=== PATIENT | female | born 1940 ===

== ENCOUNTER 2020-09-16 05:42 | Inpatient (IN) | payer OTHER ==
[~2020-09-16] VITALS: Ht 170.2 cm; Wt 133.8 kg
[~2020-09-16 05:42] MED LIST: AMLODI PO; AMMONIUM LACTATE; ARICEPT10 MG PO; CALCIUM 500 +1 EAC2 PO; CHILDREN'S ASPI81 MG PO; COZAAR100 MG PO; CYMBALTA60 MG PO; DAILY MULTIPLE1 EAC2 PO; FLONASE; HORIZANT600 MG PO; IBU600 MG PO; LEVOTHYROXINE25 MC2 PO; MAGNESIUM500 MG PO; MELATONIN PO; MEMANTINE HCL10 MG PO; MIRTAZAPINE15 M1 PO; OMEGA PO; PEPCID AC20 MG PO; PRILOSE PO; SEROQUEL25 MG PO; SEROQUEL50 MG PO; SINGULAIR 10MG10 MG PO; TRENTAL PO; TYLENOL PO; ULTRAM50 MG PO; VITAMIN C100 MG PO; VITAMIN E400 UNI5 PO; ZOCOR40 MG PO; [UNRECOGNIZED DRUG - OTHER]
[2020-09-17] MEDS ORDERED: OMEPRAZOLE20 MG (08:06)
[2020-09-17] MEDS ORDERED: AMMONIUM LACTA400 GM (08:06)
[2020-09-17] MEDS ORDERED: PRAMIPEXOLE D0.25 MG (08:07)
[2020-09-17] MEDS ORDERED: PENTOXIFYLLINE400 MG (08:07)
[2020-09-17] MEDS ORDERED: AMLODIPINE BESYL5 MG (08:08)
[2020-09-17] MEDS ORDERED: MELATONIN1 MG (08:10)
[2020-09-17] MEDS ORDERED: PRILOSEC OTC20 MG (08:10)
[2020-09-17] MEDS ORDERED: TYLENOL325 MG (08:10)
[2020-09-17] MEDS ORDERED: FLONASE16 GM (08:11)
[2020-09-17] MEDS ORDERED: OMEGA 3 1,0001 EACH (08:11)
[2020-09-18] MEDS ORDERED: INTEGRA PLUS C1 EACH PO (06:46)
[2020-09-18] MEDS ORDERED: BACTRIM DS TAB1 EACH PO (06:46)
[2020-09-18] MEDS ORDERED: XARELTO10 MG PO (06:46)
[2020-09-18] MEDS ORDERED: OXYC1TAB9 PO (06:46)
== END 2020-09-18 14:06 | disposition home or self-care (01) | DRG 470 ==
LOC: CIR.AMB 05:42 → SURG 08:22 → O/R 08:22 → SURH 11:09 → CIR.AMB 11:30 → SURH 11:30 → EDSTATUS 11:30 → SURG 20:32
PROVIDERS: ADMIT Orthopaedic Surgery Sports Medicine; ATTEND Orthopaedic Surgery Sports Medicine
PROC: 0SRC0J9 Replacement of Right Knee Joint with Synthetic Substitute, Cemented, Open Approach (ICD-10-PCS; principal; 2020-09-16 07:00)
DX: M17.11 Unilateral primary osteoarthritis, right knee (principal); G30.8 Other Alzheimer's disease; F02.80 Dementia in other diseases classified elsewhere, unspecified severity, without behavioral disturbance, psychotic disturbance, mood disturbance, and anxiety; E03.8 Other specified hypothyroidism; I10 Essential (primary) hypertension; Z96.651 Presence of right artificial knee joint